=== PATIENT | male | born 1960 | race Caucasian/White ===

== ENCOUNTER 2025-01-13 19:20 | Emergency (ER) | payer OTHER ==
[~2025-01-13] VITALS: Ht 172.7 cm; Wt 91.0 kg
[2025-01-13 19:31] VITALS: O2SAT 98
[2025-01-13] MEDS: IBUPROFEN 400MG TABLET PO ONE (20:10)
[2025-01-13] MEDS ORDERED: IBUP-2028 MT (21:33)
[2025-01-13 22:05] VITALS: BP 133/86; PULSE 81; RESP 20; TEMP 36.7; O2SAT 96
== END 2025-01-13 22:05 | disposition home or self-care (01) ==
LOC: ER 19:20
DX: M54.2 Cervicalgia (principal); M54.50 Low back pain, unspecified; S80.211A Abrasion, right knee, initial encounter; V43.52XA Car driver injured in collision with other type car in traffic accident, initial encounter; Y93.89 Activity, other specified; Y92.89 Other specified places as the place of occurrence of the external cause; Y99.8 Other external cause status
CPT/HCPCS: 72128; 72131; 73560; 99284